=== PATIENT | male | born 1985 | race Caucasian/White ===

== ENCOUNTER 2024-08-10 06:22 | Day surgery (SDC) | payer BC, SELFPAY | END 2024-08-10 12:36 | disposition home or self-care (01) | LOC: GI 06:22 | PROVIDERS: ATTENDING PHYSICIAN Student in an Organized Health Care Education/Training Program | DX: K62.5 Hemorrhage of anus and rectum (principal); C20 Malignant neoplasm of rectum; K63.5 Polyp of colon | CPT/HCPCS: 45385; 45380; 45381; 88305; 88342 ==